=== PATIENT | male | born 1950 | race Caucasian/White ===

== ENCOUNTER 2025-02-24 12:12 | Day surgery (SDC) | payer MEDICARE ==
[2025-02-21 09:06] VITALS: BMI 28.8
[2025-02-24 13:45] LABS: #Basophils 0.04 10x3/uL (0.0-0.2); #Eosinophils 0.12 10x3/uL (0.0-0.7); #Monocytes 0.54 10x3/uL (0.11-0.59); #Neutrophils 4.03 10x3/uL (1.40-6.50); %Basophils 0.6 % (0.0-1.0); %Eosinophils 1.7 % (0.0-10.0); %Lymphocytes 32.7 % (21.0-51.0); %Monocytes 7.6 % (0.0-10.0); %Neutrophils 57.1 % (42.0-75.0); Hematocrit 43.8 % (42.0-52.0); Hemoglobin 14.7 g/dL (14.0-18.0); Mean Corpuscular Hemoglobin 29.6 pg (27.0-31.0); Mean Corpuscular Volume 88.1 fL (78.0-98.0); Platelet Count 222 10x3/uL (130-400); Red Blood Cell (RBC) Count 4.97 mill/uL (4.70-6.10); White Blood Cell (WBC) Count 7.06 10x3/uL (4.8-10.8)
[2025-02-24 14:16] LABS: Anion Gap 15 mmol/L (10-20); BUN (Urea Nitrogen) 10 mg/dL (8.4-25.7); Calc. Creatinine Clearance 146 mL/min (70-130); Calcium 8.8 mg/dL (7.8-10.44); Carbon Dioxide 22 mmol/L (23-31); Chloride 101 mmol/L (98-107); Glucose 98 mg/dL (83-110); Potassium 4.1 mmol/L (3.5-5.1); Sodium 134 mmol/L (136-145)
[2025-02-24] MEDS ORDERED: Ondansetron PF 4 MG/2 ML Vial ONE (15:00)
[2025-02-24] MEDS ORDERED: PROPOFOL 200 MG/20 ML VIAL ONE (15:00)
[2025-02-24] MEDS ORDERED: Lidocaine 1% PF 5 ML VIAL ONE (15:00)
== END 2025-02-24 16:59 | disposition home or self-care (01) ==
LOC: MRI 12:12
PROVIDERS: ATTEND Family Medicine Sports Medicine
PROC: BP39ZZZ Magnetic Resonance Imaging (MRI) of Left Shoulder (ICD-10-PCS; principal; 2025-02-24)
DX: M75.112 Incomplete rotator cuff tear or rupture of left shoulder, not specified as traumatic (principal); I10 Essential (primary) hypertension; E78.5 Hyperlipidemia, unspecified; Z79.899 Other long term (current) drug therapy
CPT/HCPCS: 73221; 80048; 85025; 93005; J1100; J2704; 93010